=== PATIENT | female | born 1980 | race Two or more races ===

== ENCOUNTER 2017-09-19 00:12 | Emergency (ER) | payer MEDICAID ==
[~2017-09-19] VITALS: Ht 160 cm; Wt 61.2 kg
[2017-09-19 00:20] VITALS: BP 120/76
== END 2017-09-19 06:40 | disposition left against medical advice (07) ==
LOC: EDBD 00:12 → ER 00:21
DX: R51 Headache (principal); M54.2 Cervicalgia; Z53.21 Procedure and treatment not carried out due to patient leaving prior to being seen by health care provider; V43.92XA Unspecified car occupant injured in collision with other type car in traffic accident, initial encounter; Y93.89 Activity, other specified; Y92.89 Other specified places as the place of occurrence of the external cause; Y99.8 Other external cause status
CPT/HCPCS: 70450; 72125; 81025

== ENCOUNTER 2019-08-05 07:25 | Emergency (ER) | payer OTHER, MEDICAID ==
[~2019-08-05] VITALS: Ht 157.5 cm; Wt 72.6 kg
[2019-08-05 07:34] VITALS: BP 105/75
[2019-08-05] MEDS ORDERED: ACETAMINOPHEN/CODEINE#3 (300/30mg) TAB PO ONE (08:00)
== END 2019-08-05 09:54 | disposition home or self-care (01) ==
LOC: EDBD 07:25 → ER 07:25
DX: S01.01XA Laceration without foreign body of scalp, initial encounter (principal); J45.909 Unspecified asthma, uncomplicated; V89.2XXA Person injured in unspecified motor-vehicle accident, traffic, initial encounter; Y93.89 Activity, other specified; Y92.410 Unspecified street and highway as the place of occurrence of the external cause; Y99.8 Other external cause status
CPT/HCPCS: 12002; 70450; 72125